=== PATIENT | male | born 1960 | race African-American/Black ===

== ENCOUNTER 2020-11-18 09:31 | Outpatient (REF) | payer MEDICARE, SELFPAY ==
[2020-11-18 10:44] LABS: Estimated Average Glucose 137 mg/dL; Hemoglobin A1c % 6.4 %
[2020-11-18 10:48] LABS: Alanine Aminotransferase 27 U/L (0-40); Blood Urea Nitrogen 18 mg/dL (9-16); Cholesterol 134 mg/dL; Estimated Glomerular Filt Rate > 60; Glucose Fasting 106 mg/dL (60-99); HDL Cholesterol 35 mg/dL; LDL Cholesterol Calculated 82 mg/dl; Triglycerides 89 mg/dL
[2020-11-18 11:22] LABS: Creatinine Urine 107.74 mg/dL; Microalbumin Urine < 5.0 mg/L
[2020-11-18 11:53] LABS: Anion Gap 14 (12-20); Carbon Dioxide 26 mmol/L (22-29); Chloride 104 mmol/L (96-108); Potassium 2.9 mmol/L (3.3-5.1); Sodium 141 mmol/L (135-145)
== END 2020-11-18 09:32 | disposition home or self-care (01) ==
LOC: HO.10HDL 09:31
PROVIDERS: Visit Provider Family Medicine
DX: Z13.89 Encounter for screening for other disorder (principal)
CPT/HCPCS: 36415; 80051; 80061; 82043; 82550; 82565; 82947; 83036; 84460; 84520

== ENCOUNTER 2021-03-28 10:48 | Outpatient (REF) | payer MEDICARE, SELFPAY ==
[2021-03-28 14:15] LABS: Anion Gap 11 (12-20); Carbon Dioxide 29 mmol/L (22-29); Chloride 105 mmol/L (96-108); Potassium 3.2 mmol/L (3.3-5.1); Sodium 142 mmol/L (135-145)
== END 2021-03-28 10:49 | disposition home or self-care (01) ==
LOC: HO.10HDL 10:48
PROVIDERS: Visit Provider Family Medicine
DX: I10 Essential (primary) hypertension (principal); E87.6 Hypokalemia
CPT/HCPCS: 36415; 80051

== ENCOUNTER → 2021-08-18 12:48 | Outpatient (REF) | payer MEDICARE, SELFPAY ==
--- NOTE | 2021-08-18 13:06 | ECG_ITS ---
Test Reason : preop Blood Pressure : / mmHG Vent. Rate : 060 BPM Atrial Rate : 060 BPM P-R Int : 148 ms QRS Dur : 082 ms QT Int : 414 ms P-R-T Axes : 069 003 020 degrees QTc Int : 414 ms Normal sinus rhythm Normal ECG No previous ECGs available Referred By: Pj Koenig Electronically Signed By:NARINDER TAFOYA
[2021-08-18 13:35] LABS: Alanine Aminotransferase 22 U/L (0-40); Anion Gap 9 (12-20); Blood Urea Nitrogen 11 mg/dL (9-16); Carbon Dioxide 25 mmol/L (22-29); Chloride 114 mmol/L (96-108); Estimated Glomerular Filt Rate > 60; Glucose Fasting 101 mg/dL (60-99); Potassium 4.1 mmol/L (3.3-5.1); Sodium 144 mmol/L (135-145)
[2021-08-18 13:36] LABS: Estimated Average Glucose 120 mg/dL; Hemoglobin A1c % 5.8 %
[2021-08-19 08:38] LABS: Cholesterol 115 mg/dL; HDL Cholesterol 35 mg/dL; LDL Cholesterol Calculated 64 mg/dl; Triglycerides 80 mg/dL
== END ==
LOC: HO.CARD 12:48
PROVIDERS: PCP Family Medicine; Visit Provider Family Medicine
DX: Z01.818 Encounter for other preprocedural examination (principal); I10 Essential (primary) hypertension; E11.9 Type 2 diabetes mellitus without complications; E78.00 Pure hypercholesterolemia, unspecified; Z79.899 Other long term (current) drug therapy
CPT/HCPCS: 36415; 80051; 80061; 82550; 82565; 82947; 83036; 84460; 84520; 93005

== ENCOUNTER 2021-12-05 10:18 | Outpatient (REF) | payer MEDICARE, SELFPAY ==
[2021-12-05 11:36] LABS: Uric Acid 6.4 mg/dL (3.4-7.0)
[2021-12-05 11:51] LABS: Erythrocyte Sedimentation Rate 20 MM/HR (0-15)
== END 2021-12-05 10:19 | disposition home or self-care (01) ==
LOC: HO.LAB 10:18
PROVIDERS: PCP Family Medicine; Visit Provider Family Medicine
DX: M10.9 Gout, unspecified (principal)
CPT/HCPCS: 36415; 84550; 85652

== ENCOUNTER 2022-05-27 14:22 | Outpatient (REF) | payer MEDICARE, SELFPAY ==
[2022-05-27 15:13] LABS: Estimated Average Glucose 123 mg/dL; Hemoglobin A1c % 5.9 %
[2022-05-27 15:57] LABS: Alanine Aminotransferase 17 U/L (0-40); Anion Gap 13 (12-20); Aspartate Amino Transferase 14 U/L (5-37); Blood Urea Nitrogen 11 mg/dL (9-16); Carbon Dioxide 24 mmol/L (22-29); Chloride 111 mmol/L (96-108); Cholesterol 134 mg/dL; Estimated Glomerular Filt Rate > 60; Glucose Fasting 81 mg/dL (60-99); HDL Cholesterol 32 mg/dL; LDL Cholesterol Calculated 81 mg/dl; Potassium 4.1 mmol/L (3.3-5.1); Prostate Specific Antigen Scr 0.76 ng/mL (<0.05-4.0); Sodium 144 mmol/L (135-145); Triglycerides 108 mg/dL
== END 2022-05-27 14:23 | disposition home or self-care (01) ==
LOC: HO.LAB 14:22
PROVIDERS: PCP Family Medicine; Visit Provider Family Medicine
DX: Z12.5 Encounter for screening for malignant neoplasm of prostate (principal); I10 Essential (primary) hypertension; E78.00 Pure hypercholesterolemia, unspecified; E11.9 Type 2 diabetes mellitus without complications; R35.1 Nocturia; Z79.899 Other long term (current) drug therapy
CPT/HCPCS: 36415; 80051; 80061; 82550; 82565; 82947; 83036; 84153; 84450; 84460; 84520

== ENCOUNTER 2023-05-27 12:20 | Outpatient (REF) | payer MEDICARE, SELFPAY ==
[2023-05-27 13:44] LABS: Estimated Average Glucose 117 mg/dL; Hemoglobin A1c % 5.7 % (<6.0)
[2023-05-27 14:01] LABS: Alanine Aminotransferase 28 U/L (0-40); Anion Gap 9 (12-20); Aspartate Amino Transferase 16 U/L (5-37); Blood Urea Nitrogen 11 mg/dL (9-16); Carbon Dioxide 25 mmol/L (22-29); Chloride 111 mmol/L (96-108); Estimated Glomerular Filt Rate > 60; Glucose Fasting 80 mg/dL (60-99); Potassium 3.9 mmol/L (3.3-5.1); Sodium 141 mmol/L (135-145)
[2023-05-27 14:07] LABS: Creatinine Urine 94.08 mg/dL; Microalbum/Creatinine Ratio Ur 7.4 ug/mg cr (<30)
== END 2023-05-27 12:21 | disposition home or self-care (01) ==
LOC: HO.10HDL 12:20
PROVIDERS: Visit Provider Family Medicine
DX: I10 Essential (primary) hypertension (principal); E78.00 Pure hypercholesterolemia, unspecified; E11.9 Type 2 diabetes mellitus without complications; Z79.899 Other long term (current) drug therapy
CPT/HCPCS: 36415; 80051; 82043; 82550; 82565; 82570; 82947; 83036; 84450; 84460; 84520

== ENCOUNTER 2023-08-05 10:00 | Outpatient (RCR) | payer MEDICARE, SELFPAY ==
--- NOTE | 2023-10-15 08:43 | MHC.PT.DC ---
[facility] [place] Office [place] Office [place] Office [address] Maricel Tellez 140 [facility] [phone] F: [phone] F: [phone] F: [phone] F: [phone] Physical Therapy Discharge Report Diagnosis: Lumbar intervertebral disc degeneration Date of Surgery: Date of Evaluation: 07/05/23 Date of Discharge: 10/15/23 Treatments to Date: 9 Cancellations to Date: No Shows to Date: Discharge Status: Independent with HEP Patient Elected to Stop Discharge Summary: Pt persisted with LBP though found his program helpful when he was consistent; he did not attend his last apt for discharge assessment. Electronically signed by: Pavan Avendano PT. Please sign and return to therapist. Thank you for your referral.
== END 2023-10-15 08:43 | disposition home or self-care (01) ==
LOC: HO.PT 10:00
PROVIDERS: PCP Family Medicine; Visit Provider Family Medicine
DX: M51.36 Other intervertebral disc degeneration, lumbar region (principal)
CPT/HCPCS: 97014; 97110; 97161

== ENCOUNTER 2023-11-03 11:24 | Outpatient (REF) | payer MEDICARE, SELFPAY ==
--- NOTE | ~2023-11-03 | XR_ITS ---
EXAMINATION: XR KNEE, LEFT CLINICAL INFORMATION: No injury, ongoing pain COMPARISON: September 15, 2019 TECHNIQUE: Four views of the left knee. FINDINGS: Redemonstration of abundant calcification along the inferior aspect of the patella, possibly representing dystrophic calcification related to chronic degenerative process or prior trauma. Small joint effusion. Small posterior patellar osteophytes. Mild narrowing of the lateral compartment. XR/XR knee LT 4V IMPRESSION: 1. Redemonstration of abundant calcification along the inferior aspect of the patella, possibly representing dystrophic calcification related to chronic degenerative process or prior trauma. 2. Small joint effusion.
--- NOTE | ~2023-11-03 | XR_ITS ---
EXAMINATION: XR LUMBOSACRAL SPINE CLINICAL INFORMATION: Low back pain, no injury, ongoing pain. COMPARISON: None available. TECHNIQUE: Three views of the lumbosacral spine. FINDINGS: There is a transitional vertebral body referred to as L5 for the purposes of this dictation with bilateral enlarged L5 transverse processes articulating with the sacrum.Mild levoscoliosis of the lumbar spine. Straightening of the normal lumbar lordosis. Facet arthritis in the lower lumbar spine. Mild multilevel lumbar spondylosis with loss of disc space height at L4-L5 and L5-S1. There is a transitional vertebral body referred to as L5 for the purposes of this dictation with bilateral enlarged L5 transverse processes articulating with the sacrum. 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 XR/XR lumbar spine 2-3V IMPRESSION: 1. Mild multilevel lumbar spondylosis with loss of disc space height at L4-L5 and L5-S1. 2. Facet arthritis in the lower lumbar spine. 3. There is a transitional vertebral body referred to as L5 for the purposes of this dictation with bilateral enlarged L5 transverse processes articulating with the sacrum.
[2023-11-03 13:46] LABS: Alanine Aminotransferase 24 U/L (0-40); Anion Gap 13 (12-20); Aspartate Amino Transferase 16 U/L (5-37); Blood Urea Nitrogen 11 mg/dL (9-16); Carbon Dioxide 24 mmol/L (22-29); Chloride 114 mmol/L (96-108); Cholesterol 133 mg/dL (<200); Estimated Glomerular Filt Rate > 60; Glucose Fasting 94 mg/dL (60-99); HDL Cholesterol 31 mg/dL (>40); LDL Cholesterol Calculated 83 mg/dL (<100); Potassium 4.3 mmol/L (3.3-5.1); Sodium 147 mmol/L (135-145); Triglycerides 97 mg/dL (<150)
[2023-11-03 13:50] LABS: Estimated Average Glucose 123 mg/dL; Hemoglobin A1c % 5.9 % (<6.0)
[2023-11-03 14:17] LABS: Creatinine Urine 132.97 mg/dL; Microalbumin Urine < 5.0 mg/L
== END 2023-11-03 11:25 | disposition home or self-care (01) ==
LOC: HO.10HDL 11:24
PROVIDERS: PCP Family Medicine; Visit Provider Family Medicine
DX: M54.50 Low back pain, unspecified (principal); M25.562 Pain in left knee; I10 Essential (primary) hypertension; E11.9 Type 2 diabetes mellitus without complications; E78.00 Pure hypercholesterolemia, unspecified; Z79.899 Other long term (current) drug therapy
CPT/HCPCS: 36415; 72100; 73564; 80051; 80061; 82043; 82550; 82565; 82570; 82947; 83036; 84450; 84460; 84520

== ENCOUNTER 2024-03-29 11:07 | Outpatient (REF) | payer MEDICARE, SELFPAY ==
[2024-03-29 13:06] LABS: MANUAL DIFF FLAG NO
[2024-03-29 13:09] LABS: Basophils Absolute Auto 0.1 X10*3/uL (0.0-0.2); Basophils Percent Auto 1.3 % (0-2); Eosinophils Absolute Auto 0.5 X10*3/uL (0.0-0.4); Eosinophils Percent Auto 5.3 % (0-4); Hemoglobin 13.1 g/dl (14.0-18.0); Imm Gran Abs Auto 0.01 X10*3/uL (0.00-0.03); Imm Gran Pct Auto 0.1 % (0.0-0.4); Lymphocytes Absolute Auto 2.7 X10*3/uL (1.2-4.9); Lymphocytes Percent Auto 29.5 % (20-40); Mean Corpuscular HGB Conc 32.8 g/dl (31.0-36.0); Mean Corpuscular Hemoglobin 27.1 pg (27.0-33.0); Mean Corpuscular Volume 82.8 fL (80.0-98.0); Mean Platelet Volume 10.4 fL (9.4-12.4); Monocytes Absolute Auto 0.8 X10*3/uL (0.1-1.2); Monocytes Percent Auto 8.3 % (2-11); Neutrophils Absolute Auto 5.1 x10*3/uL (2.0-8.3); Neutrophils Percent Auto 55.5 % (45-73); Platelet Count 230 X10*3/uL (160-400); Red Blood Count 4.83 X10*6/uL (4.60-5.80); Red Cell Distribution Width 14.4 % (11.0-16.0); White Blood Count 9.1 X10*3/uL (4.8-10.8)
[2024-03-29 13:21] LABS: Alanine Aminotransferase 22 U/L (0-40); Anion Gap 12 (12-20); Aspartate Amino Transferase 13 U/L (5-37); Blood Urea Nitrogen 10 mg/dL (9-16); Carbon Dioxide 24 mmol/L (22-29); Chloride 113 mmol/L (96-108); Estimated Glomerular Filt Rate > 60; Potassium 4.1 mmol/L (3.3-5.1); Sodium 145 mmol/L (135-145)
[2024-03-29 13:27] LABS: Estimated Average Glucose 126 mg/dL; Hemoglobin A1C 140.2882 umol/L; Total Hemoglobin (HGBA1C) 3326.1161 umol/L
[2024-03-29 13:35] LABS: Creatinine Urine 107.58 mg/dL; Microalbumin Urine < 5.0 mg/L
[2024-03-30 10:10] LABS: Glucose Fasting 86 mg/dL (60-99)
== END 2024-03-29 11:08 | disposition home or self-care (01) ==
LOC: HO.10HDL 11:07
PROVIDERS: Visit Provider Family Medicine
DX: I10 Essential (primary) hypertension (principal); R53.83 Other fatigue; E78.00 Pure hypercholesterolemia, unspecified; E11.9 Type 2 diabetes mellitus without complications; Z79.899 Other long term (current) drug therapy
CPT/HCPCS: 36415; 80051; 82550; 82565; 82570; 82947; 83036; 84450; 84460; 84520; 85025

== ENCOUNTER 2025-04-03 11:27 | Outpatient (AMB) | payer MEDICARE, SELFPAY ==
--- NOTE | 2025-04-03 10:53 | MHC.PC.OV ---
Vital Signs 04/03/25 11:36 Height 5 ft 9 in Weight 107.501 kg BMI 35.0 BP 122/82 Blood Pressure Location Rt brachial Position Sitting Respiration 16 Pulse 53 Pulse Source Pulse Oximeter Temp 96.9 F Temp Source Temporal Artery Scan Pulse Oximetry (%) 96 Oxygen Delivery Method Room Air Intake Visit Reasons: 4 MO F/UP - ANALI PT - see comments Senior Copywriter Required: No Accompanied by: Self / Same As Patient Allergies penicillin Allergy (Unknown, Uncoded 09/15/19 00:00) Tobacco use date assessed: 04/03/25 Dental Screening Dental Screen Date: 04/03/25 Did you have a dental visit in the last 12 months?: Yes Did you have a dental problem in the last 6 months where you did not have access to dental care?: No Was dental information given to patient?: Patient has dentist HPI HPI Comments History of Present Illness Details 64-year-old male with history of hypertension, type 2 diabetes with erectile dysfunction, history of genital herpes, GERD, hyperlipidemia, insomnia, depression, obstructive sleep apnea, venous insufficiency presenting to the office today for management of chronic conditions and to establish care Type 2 diabetes with erectile dysfunction-last A1c 6.0%. RN at home took A1c and reports this was 8.1%. Managed with metformin 500 mg twice daily but has only been taking intermittently. Compliant with diabetic diet. Due for A1c and microalbumin urine screen. Sildenafil PRN Depression/insomnia-escitalopram 10 mg nightly and topiramate 200 mg nightly Hypertension-lisinopril 5 mg daily. Blood pressure in the office today 122/82 Genital herpes-suppressed with Valtrex 500 mg daily Hyperlipidemia-atorvastatin 40 mg daily. Last LDL 83 LEONARD- not using cpap Obesity- BMI 35.0. Stopped drinking soda and increased water intake. Walking for exercise. Concerns: R quadriceps injury (rupture) in 2013. Works for [employer]. Has had several surgeries and has done physical therapy. Is still unstable at times. Not overly painful per patient, but describes a constant mild throbbing. Follows with Jenn, case still open. No longer working Chronic low back pain- but reports he deals with it. Interested in PT. No radiation, paresthesias, bowel/bladder dysfunction Health maintenance: Last colonoscopy ROS: see hpi EXAM: Constitutional - Awake and Alert, No apparent distress Eyes - PERRL Cardiovascular - S1S2, RRR, No edema Respiratory - Normal lung expansion, Normal respiratory effort, No respiratory distress, CTA bilaterally Extremities - no calf tenderness bilaterally, no swelling MSK- ttp over the left paraspinal muscles. No midline ttp Skin - Warm/Dry Neurological - Alert & oriented x3 Psychological - Appropriate affect [facility] Medical History (Updated 04/03/25 @ 12:04 by TOMMY Og) LEONARD (obstructive sleep apnea) Genital herpes Venous insufficiency HLD (hyperlipidemia) HTN (hypertension) Erectile dysfunction due to type 2 diabetes mellitus Chronic low back pain Social History Housing: House Patient Tobacco Use Status: Never used Tobacco e-Cigarette/Vaping Use: Never Used service: No Current occupational status: unemployed Questionnaire AUDIT C Alcohol Use Questionnaire (AUDIT-C) 1. How often do you have a drink containing alcohol?: Never 3. How often do you have six or more drinks on one occasion?: Never Total Score: 0 Physical exam (Primary Care) Vital Signs: Last Vital Signs Temp 96.9 F 04/03/25 11:36 Pulse 53 04/03/25 11:36 Resp 16 04/03/25 11:36 BP 122/82 04/03/25 11:36 Pulse Ox 96 04/03/25 11:36 Oxygen Delivery Method Room Air 04/03/25 11:36 BMI result Body Mass Index 35.0 Tobacco/Smoking Status: Tobacco use Status Tobacco use date assessed 04/03/25 04/03/25 10:55 Patient Tobacco Use Status Never used Tobacco 04/03/25 11:39 e-Cigarette/Vaping Use Never Used 04/03/25 11:39 Coding Level of Care Code New Pt Level 4 (68863) Complex EM visit Add On G2211 Diagnoses Chronic low back pain M54.50; G89.29 Erectile dysfunction due to type 2 diabetes mellitus E11.69; N52.1 HTN (hypertension) I10 HLD (hyperlipidemia) E78.5 LEONARD (obstructive sleep apnea) G47.33 Assessment & Plan Assessment & Plan (1) Chronic low back pain: Code(s): M54.50 - Low back pain, unspecified; G89.29 - Other chronic pain Category: Medical Plan: Recommend ibuprofen/Tylenol, topical analgesics, ice. Referred to physical therapy. Gentle exercises at home as tolerated (2) Erectile dysfunction due to type 2 diabetes mellitus: Comment: Noncompliant with metformin. Has improved diabetic diet Code(s): E11.69 - Type 2 diabetes mellitus with other specified complication; N52.1 - Erectile dysfunction due to diseases classified elsewhere Category: Medical Plan: Hemoglobin A1c ordered. Counseled on compliance with medications. Continue metformin 500 mg twice daily. Continue with improvements to diabetic diet. Microalbumin urine screen ordered. Annual eye exams. Continue sildenafil as needed (3) HTN (hypertension): Code(s): I10 - Essential (primary) hypertension Category: Medical Plan: Controlled. Continue lisinopril (4) HLD (hyperlipidemia): Code(s): E78.5 - Hyperlipidemia, unspecified Category: Medical Plan: Previously controlled. Lipid panel ordered. Continue atorvastatin (5) LEONARD (obstructive sleep apnea): Comment: Noncompliant with CPAP. Counseled Code(s): G47.33 - Obstructive sleep apnea (adult) (pediatric) Category: Medical Plan: Counseled on CPAP compliance Plan Follow-up in the office in 4 months. Labs to be completed today. Referred for colonoscopy Orders: Orders Basic Metabolic Panel Today A60.00 - Herpesviral infection of urogenital system, unspecified, E11.69 - Type 2 diabetes mellitus with other specified complication, E78.5 - Hyperlipidemia, unspecified, I10 - Essential (primary) hypertension, N52.1 - Erectile dysfunction due to diseases classified elsewhere Microalbumin, Random (w Creat) Today A60.00 - Herpesviral infection of urogenital system, unspecified, E11.69 - Type 2 diabetes mellitus with other specified complication, E78.5 - Hyperlipidemia, unspecified, I10 - Essential (primary) hypertension, N52.1 - Erectile dysfunction due to diseases classified elsewhere Prostate Specific Antigen Today A60.00 - Herpesviral infection of urogenital system, unspecified, E11.69 - Type 2 diabetes mellitus with other specified complication, E78.5 - Hyperlipidemia, unspecified, I10 - Essential (primary) hypertension, N52.1 - Erectile dysfunction due to diseases classified elsewhere PT Evaluation and Treatment Today G89.29 - Other chronic pain, M54.50 - Low back pain, unspecified Complete Blood Count Auto Diff Today A60.00 - Herpesviral infection of urogenital system, unspecified, E11.69 - Type 2 diabetes mellitus with other specified complication, E78.5 - Hyperlipidemia, unspecified, I10 - Essential (primary) hypertension, N52.1 - Erectile dysfunction due to diseases classified elsewhere Hemoglobin A1c Today A60.00 - Herpesviral infection of urogenital system, unspecified, E11.69 - Type 2 diabetes mellitus with other specified complication, E78.5 - Hyperlipidemia, unspecified, I10 - Essential (primary) hypertension, N52.1 - Erectile dysfunction due to diseases classified elsewhere Lipid Panel Today A60.00 - Herpesviral infection of urogenital system, unspecified, E11.69 - Type 2 diabetes mellitus with other specified complication, E78.5 - Hyperlipidemia, unspecified, I10 - Essential (primary) hypertension, N52.1 - Erectile dysfunction due to diseases classified elsewhere Liver Panel Today A60.00 - Herpesviral infection of urogenital system, unspecified, E11.69 - Type 2 diabetes mellitus with other specified complication, E78.5 - Hyperlipidemia, unspecified, I10 - Essential (primary) hypertension, N52.1 - Erectile dysfunction due to diseases classified elsewhere Referrals Gastroenterology Referral Z12.11 - Encounter for screening for malignant neoplasm of colon
[2025-04-03 11:36] VITALS: BP 122/82; PULSE 53; RESP 16; TEMP 36.1; O2SAT 96; BMI 35.0
--- OUTSIDE RECORDS SUMMARY | 2025-04-03 14:28 | XMS_ITS | Clinical Summary ---
Author Organization [facility] Address [address] [place] [address] Care Team Providers Care Body Trimmer Upholsterer Name Role Phone Pj Koenig MD Primary Care Provider [phone] Allergies Active Allergy Reactions Criticality Noted Date Comments Penicillins Rash/Dermatitis Low 09/29/2023 Medications No known medications Active Problems Problem Noted Date Diagnosed Date Back pain 09/29/2023 Social History Tobacco Use Types Packs/Day Years Used Date Smoking Tobacco: Never Assessed Tobacco Cessation:Counseling Given: Not Answered Sex and Gender Information Value Date Recorded Sex Assigned at Male 09/20/2023 10:43 AM EDT Legal Sex Male 11:58 AM EDT Gender Identity Male 09/20/2023 10:43 AM EDT Sexual Orientation Choose not to disclose 2023 10:43 AM EDT Last Filed Vital Signs Vital Sign Reading Time Taken Comments Blood Pressure 120/80 02/27/2014 11:20 AM EDT Pulse 81 02/27/2014 11:55 AM EDT Temperature - - Respiratory Rate 12 02/27/2014 11:55 AM EDT Oxygen Saturation - - Inhaled Oxygen Concentration - - Weight 116 kg (256 lb) 02/27/2014 11:20 AM EDT Height 172.7 cm (5' 8 ) 02/27/2014 11:20 AM EDT Body Mass Index 38.92 02/27/2014 11:20 AM EDT Plan of Treatment Health Maintenance Due Date Last Done Comments Hepatitis C Virus Screening 1961 HIV Screening 1974 DTaP/Tdap/Td Vaccines (1 - Tdap) 1980 Colonoscopy 2006 Pneumococcal Vaccines 50+ (1 of 1 - PCV) 2011 Zoster (Shingles) Vaccine (1 of 2) 2011 RSV Vaccine 60 years and older and Patients (1 - Risk 60-74 years 1-dose series) 2021 Influenza Vaccine 01/26/2025 04/29/2018, 04/26/2017, 03/24/2016 COVID-19 Vaccine (2023-2 5 season) 2025 Hepatitis B Vaccines Aged Out No long er eligible based on patient's age to complete this [place] [address] [facility] [place] [employer] Care Teams Body Trimmer Upholsterer Relationship Specialty Start Date End Date Pj Koenig MD [address] [place] [address] [place] [id number] PCP - General Internal Medicine 11/19/23
--- OUTSIDE RECORDS SUMMARY | 2025-04-03 14:28 | XMS_ITS | Encounter Summary ---
Author Organization [facility] Address [address] [place] [address] Care Team Providers Care Loss Prevention/Safety District Manager Name Role Phone System, Provider Not In Primary Care Provider Un available Pj Koenig MD Primary Care Provider [phone] Encounter Details Date Type Department Care Team (Late st Contact Info) Description 04/03/[address] [facility] COLORECTAL SCAN Colorectal, Scan Social History Tobacco Use Types Packs/Day Years Used Date Smoking Tobacco: Never Assessed Sex and Gender Information Value Date Recorded Sex Assigned at Male 09/20/2023 10:43 AM EDT Legal Sex Male 11:58 AM EDT Gender Identity Male 09/20/2023 10:43 AM EDT Sexual Orientation Choose not to disclose 2023 10:43 AM EDT documented as of this encounter Plan of Treatment Not on file documented as of this encounter Visit Diagnoses Not on filedocumented in this encounter Care Teams Loss Prevention/Safety District Manager Relationship Specialty Start Date End Date System, Provider Not In PCP - General 09/20/23 11/18/23 Pj Koenig MD [address] [place] [address] [place] [id number] PCP - General Internal Medicine 11/19/23 documented as of this encounter
--- OUTSIDE RECORDS SUMMARY | 2025-04-03 14:28 | XMS_ITS ---
Author Name [facility] Organization Unknown History of Medication Use Medication Directions Dispensed Refills Start Date End Date Stat cyclobenzaprine (FLEXERIL) 5 mg tablet TAKE 1 TABLET BY MOUTH EVERYDAY AT BEDTIME 12/31/2023 active escitalopram (LEXAPRO) 10 mg tablet TAKE 1 TABLET BY MOUTH EVERYDAY AT BEDTIME 04/07/2023 active predniSONE (DELTASONE) 10 mg tablet Take 2 pills x 4 days, Take 1 pill for 4 days and 1/2 pill x 4 days 08/25/2022 active metoprolol succinate XL (Toprol XL) 50 mg 24 hr tablet TAKE 1 TABLET BY MOUTH EVERY DAY AT BEDTIME DIRECTED 10/20/2021 active atorvastatin (LIPITOR) 40 mg tablet TAKE 1 TABLET BY MOUTH EVERY DAY AT BEDTIME DIRECTED 10/02/2021 active lisinopriL (PRINIVIL) 5 mg tablet TAKE 1 TABLET BY MOUTH EVERY DAY IN THE MORNING DIRECTED 09/17/2021 active topiramate (TOPAMAX) 100 mg tablet daily. 08/04/2020 active OneTouch Verio test strips strip for testing 07/19/2020 active sertraline (ZOLOFT) 100 mg tablet Take 100 mg by mouth nightly. 05/06/2020 active potassium chloride (K-TAB) 20 mEq CR tablet daily. 08/23/2019 active lancets 30 gauge misc 1 each daily. active metFORMIN XR (GLUCOPHATE-XR) 500 mg 24 hr tablet 2 (two) times a day. active No known medications No known medications active sildenafiL, pulm.hypertension, (REVATIO) 20 mg tablet sildenafil (pulmonary hypertension) 20 mg tablet TAKE 2 TABLET (20 MG) BY ORAL ROUTE 30 minutes prior to intercourse active valACYclovir (VALTREX) 500 mg tablet as needed. active Allergies Allergen Reaction Severity Comment Documented Date Source Statu s PENICILLIN 02/08/2024 [facility] active PENICILLINS RASH/DERMATITIS 09/29/2023 [facility] a ctive HYDROCODONE-ACETAMINOP HEN GI INTOLERANCE 10/17/2013 [facility] active OXYCODONE-ACETAMINOPHE N [facility] Problems Problem Status Onset Date Problem Type Date of Resolution Source Psychosexual dysfunction associated with inhibited libido active 2021-10-21 ProblemAct [facility] Major depressive disorder active 2021-10-21 ProblemAct [facility] Obstructive sleep apnea syndrome active 2017-01-19 ProblemAct [facility] Type 2 diabetes mellitus without complication active 2021-10-21 ProblemAct [facility] Essential hypertension active 2021-10-21 ProblemAct [facility] Distal muscle weakness active 2015-04-04 ProblemAct [facility] Hyperlipidemia active 2021-10-21 ProblemAct [facility] Vernal conjunctivitis active 2019-01-06 ProblemAct [facility] Seborrheic dermatitis active 2021-10-21 ProblemAct [facility] Obesity with body mass index 30 or greater active 2021-10-21 ProblemAct [facility] Drug-induced hypokalemia active 2019-01-08 ProblemAct [facility] Muscle weakness active EncounterDiagnosisAct [facility] Difficulty walking active EncounterDiagnosisAct [facility] Chronic pain of right knee active EncounterDiagnosisAct [facility] Back pain active 2023-09-29 ProblemAct [facility] Immunizations Vaccine Date Source Lot Number Status Influenza, Quadrivalent 04/29/2018 [facility] [id number] ompleted Td 04/29/2018 [facility] [id number] completed Influenza, Quadrivalent 04/26/2017 [facility] [id number] ompleted Influenza, Quadrivalent 03/24/2016 [facility] [id number] c ompleted Pneumococcal Polysaccharide PCV-23 10/25/2015 [facility] [id number] completed Pneumococcal Conjugate PCV-13 10/22/2014 [facility] [id number] completed Influenza (IM) Preservative Free 04/24/2014 [facility] [id number] completed Influenza TIV (IM) 02/08/2012 [facility] [id number] comple alonzo Influenza TIV (IM) 03/06/2009 [facility] comple alonzo Tdap 02/10/2007 [facility] completed Encounters Encounter Type Encounter Reason Primary Diagnosis Location Date Ambulatory Encounter for other orthopedic aftercare Encounter for other orthopedic aftercare [facility] 02/08/2024 [facility] 01/19/2024 Ambulatory [facility] 12/21/2023 Ambulatory [facility] 12/17/2023 Ambulatory [facility] 12/14/2023 Ambulatory [facility] 12/09/2023 Ambulatory [facility] 12/02/2023 Ambulatory [facility] 11/30/2023 Ambulatory Pain in right knee Pain in right knee [facility] 11/19/2023 Ambulatory Pain in right knee Pain in right knee [facility] 11/09/2023 Ambulatory Pain in right knee Pain in right knee [facility] 11/05/2023 Ambulatory Pain in right knee Pain in right knee [facility] 10/28/2023 Ambulatory Pain in right knee Pain in right knee [facility] 10/26/2023 Ambulatory Pain in right knee Pain in right knee [facility] 10/20/2023 Ambulatory Pain in right knee Pain in right knee [facility] 10/15/2023 Ambulatory Pain in right knee Pain in right knee [facility] 09/29/2023 Ambulatory [facility] 05/18/2023 Ambulatory [facility] 11/17/2022 Ambulatory Muscle weakness (generalized) [facility] 08/25/2022 Ambulatory Follow-up [facility] 02/10/2022 Ambulatory Other instabilit y, right knee [facility] 10/30/2021 Ambulatory Other instabilit y, right knee [facility] 09/25/2021 Ambulatory Other instabilit y, right knee [facility] 09/16/2021 Ambulatory Unilateral prima ry osteoarthritis, right knee [facility] 09/01/2021 Ambulatory Other instabilit y, right knee [facility] 07/10/2021 Ambulatory [facility] 04/22/2021 Ambulatory Other instabilit y, right knee [facility] 04/22/2021 Care Team Organization Name Specialty Phone Email Start Date End Da te [facility] MAGDA BRIONES Primary Care 11/19/2023 [facility] System Desk Attendant 09/29/2023 09/13/2024 [facility] PROVIDER SYSTEM Primary Care 09/20/2023 [facility] PCP,No Primary Care 02/10/2022 [facility] NO PCP Primary Care 07/10/2021 [facility]
--- OUTSIDE RECORDS SUMMARY | 2025-04-03 14:28 | XMS_ITS | Encounter Summary ---
Author Organization [facility] Address [address] [place] [id number] Care Team Providers Care Licensed Vocational Nurse Name Role Phone Pcp, No MD Primary Care Provider Milton e Pcp, No MD Primary Care Provider Unavailprema e Pj Koenig Unavailable Encounter Details Date Type Department Care Team (Late st Contact Info) Description 07/02/2021 Orders Only [place] [phone] Corey Phillips MD PhD [address] [facility] [place] [address] Social History Tobacco Use Types Packs/Day Years Used Date Smoking Tobacco: Never Smokeless Tobacco: Never Alcohol Use Standard Drinks/Week Comments Never 0 (1 standard drink = 0.6 oz pur e alcohol) AUDIT-C Answer Date Recorded Q1: How often do you have a drink containing alc ohol? Never 08/25/2019 Average Number of Drinks Not on file 020 Frequency of Binge Drinking Not on file 07/30 Sex and Gender Information Value Date Recorded Sex Assigned at Not on file Legal Sex Male 11:51 AM EST Gender Identity Not on file Sexual Orientation Not on file documented as of this encounter Plan of Treatment Not on file documented as of this encounter Visit Diagnoses Not on filedocumented in this encounter Care Teams Licensed Vocational Nurse Relationship Specialty Start Date End Date Irlanda Shah MD [address] [place] [id number] PCP - General Internal Medicine 08/16/19 08/14/21 Irlanda Shah MD [address] [place] [id number] PCP - General Internal Medicine 08/15/21 Pj Koenig [address] [place] [phone] PCP - Insurance Payer PCP 04/18/23 documented as of this encounter
--- OUTSIDE RECORDS SUMMARY | 2025-04-03 14:28 | XMS_ITS | Clinical Summary ---
Author Organization [facility] Address [address] [place] [id number] Care Team Providers Care Head Operator Name Role Phone Pcp, No MD Primary Care Provider jP Pearson Unavailable Allergies Active Allergy Reactions Criticality Noted Date Comments Hydrocodone-Acetaminophen GI intolerance 2013 Oxycodone-Acetaminophen 02/08/2024 Penicillin 02/08/2024 Penicillins Rash Low 08/25/2019 Medications metFORMIN XR (GLUCOPHATE-XR) 500 mg 24 hr tablet 2 (two) times a day. Active lancets 30 gauge misc 1 each daily. Activ e potassium chloride (K-TAB) 20 mEq CR tablet daily. 0 Active sildenafiL, pulm.hypertensi on, (REVATIO) 20 mg tablet sildenafil (pulmonary hypertension) 20 mg tablet TAKE 2 TABLET (20 MG) BY ORAL ROUTE 30 minutes prior to intercourse Active valACYclovir (VALTREX) 500 mg tablet as needed. Active OneTouch Verio Flex meter misc for testing 1 Active sertraline (ZOLOFT) 100 mg tablet Take 100 mg by mouth nightly. 0 Active topiramate (TOPAMAX) 100 mg tablet daily. 1 Active OneTouch Verio test strips strip for testing 1 Active lisinopriL (PRINIVIL) 5 mg tablet TAKE 1 TABLET BY MOUTH EVERY DAY IN THE MORNING DIRECTED 2 Active atorvastatin (LIPITOR) 40 mg tablet TAKE 1 TABLET BY MOUTH EVERY DAY AT BEDTIME DIRECTED 2 Active metoprolol succinate XL (Toprol XL) 50 mg 24 hr tablet TAKE 1 TABLET BY MOUTH EVERY DAY AT BEDTIME DIRECTED 2 Active predniSONE (DELTASONE) 10 mg tablet Take 2 pills x 4 days, Take 1 pill for 4 days and 1/2 pill x 4 days 20 tablet 3 Active Additional Information Patient not taking.Reported on 11/17/2022 escitalopram (LEXAPRO) 10 mg tablet TAKE 1 TABLET BY MOUTH EVERYDAY AT BEDTIME 3 Active cyclobenzaprine (FLEXERIL) 5 mg tablet TAKE 1 TABLET BY MOUTH EVERYDAY AT BEDTIME 4 Active Active Problems Problem Noted Date Diagnosed Date Essential hypertension 10/21/2021 Hyperlipidemia 10/21/2021 Major depressive disorder 10/21/2021 Obesity with body mass index 30 or greater 10/21 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 10/21/2021 Seborrheic dermatitis 10/21/2021 Type 2 diabetes mellitus without complication Drug-induced hypokalemia 01/08/2019 Vernal conjunctivitis 01/06/2019 Obstructive sleep apnea syndrome 01/19/2017 Distal muscle weakness 04/04/2015 Immunizations Immunization Administration Dates Next Due Influenza (IM) Preservative Free 04/24/2014 Influenza TIV (IM) 02/08/2012,03/06/2009 Influenza, Quadrivalent 04/29/2018,04/26/2017, Pneumococcal Conjugate PCV-13 10/22/2014 Pneumococcal Polysaccharide PCV-23 10/25/2015 Td 04/29/2018 Tdap 02/10/2007 Social History Tobacco Use Types Packs/Day Years Used Date Smoking Tobacco: Never Smokeless Tobacco: Never Tobacco Cessation:Counseling Given: Not Answered Alcohol Use Standard Drinks/Week Comments Never 0 [...] on file Sexual Orientation Not on file Last Filed Vital Signs Vital Sign Reading Time Taken Comments Blood Pressure 132/76 09/03/2021 12:01 PM EST Pulse 85 09/03/2021 12:01 PM EST Temperature 36.1 C (97 F) 10/30/2021 10:41 AM EDT Respiratory Rate 17 09/03/2021 12:01 PM EST Oxygen Saturation 97% 09/03/2021 12:01 PM EST Inhaled Oxygen Concentration - - Weight 105 kg (232 lb 6.4 oz) 02/08/2024 11:19 A M EDT Height 175.3 cm (5' 9 ) 02/08/2024 11:19 AM EDT Body Mass Index 34.32 02/08/2024 11:19 AM EDT Plan of Treatment Health Maintenance Due Date Last Done Comments CT Colonography 1961 Colonoscopy 1961 Colorectal Cancer Screening 1961 Diabetes: Hemoglobin A1C 1961 Diabetes: Kidney Health Evaluation 1961 FIT-DNA (Cologuard) 1961 FIT 1961 FOBT 1961 Flex Sigmoidoscopy - 5y 1961 HIV Screening 1961 Diabetes: Retinopathy Screening 1979 Hepatitis C Screening 1979 Zoster Vaccines (1 of 2) 2011 Pneumococcal Vaccine, 50+ Years (3 of 3 - PCV20 or PCV21) 10/24/2020 10/25/2015, 10/22/2014 COVID-19 Vaccine (1 - season) 2025 Influenza Vaccine (#1) 2025 8, 04/26/2017, 03/24/2016, Additional history exists DTaP,Tdap,and Td Vaccines (3 - Td or Tdap) 04/29/2028 04/29/2018, 02/10/2007 HPV Vaccines Aged Out No longer eligi ble based on patient's age to complete this topic Hepatitis A Vaccines Aged Out No long er eligible based on patient's age to complete this topic MMR Vaccines Aged Out No longer eligi ble based on patient's age to complete this topic Meningococcal Vaccine Aged Out No kaveh kelly eligible based on patient's age to complete this topic Medical Devices Implanted Type Area Motion Picture Printer Device Identifier Shelf Expiration Date Model / Serial / Lot Simplex Hv With Gentamicin Antibiotic Bone Cement - [id number] Implanted:Qty: 1 on 09/03/2021 by Corey Phillips MD PhD at [facility] [employer] 06/27/2022 [id number] HB Size 2, Ibalance Pfj Patello Femoral, Cemented, Right - [id number] Implanted:Qty: 1 on 09/03/2021 by Corey Phillips MD PhD at [facility] [employer]nee [employer]plants, Repairs, Reconstruction [employer] 04/27/2025 AR-502-2 R / / [id number] 37mm X 10mm Ibalance Patella Implant Dome, Vit E - [id number] Implanted:Qty: 1 on 09/03/2021 by Corey Phillips MD PhD at [facility] Knee Implants, Repairs, [employer] 05/27/2025 AR-524-[id number] / / [id number] Insurance [employer] MANAGED MEDICARE [facility] Advance Directives For more information, please contact: [phone] Documents on File Type Date Recorded Patient Sports Medicine Physician Expl anation Advance Directives 09/05/2021 10:39 AM Care Teams Head Operator Relationship Specialty Start Date End Date Irlanda Shah MD [address] [place] [address] PCP - General Internal Medicine 08/15/21 Pj Koenig [address] [place] [phone] PCP - Insurance Payer PCP 04/18/23
--- OUTSIDE RECORDS SUMMARY | 2025-04-03 14:28 | XMS_ITS | Encounter Summary ---
Author Organization [facility] Address [address] [place] [address] Care Team Providers Care Fish Agent Name Role Phone PcpIrlanda MD Primary Care Provider Pj Pearson Unavailable Encounter Details Date Type Department Care Team (Late st Contact Info) Description 01/11/2024 Orders Only [facility] Department of Orthopedic Surgery [address] [place], [place] [id number] Corey Phillips MD PhD [facility] [place] [address] Social History Tobacco Use Types Packs/Day Years [...] on filedocumented in this encounter Care Teams Fish Agent Relationship Specialty Start Date End Date Irlanda Shah MD [address] [place] [address] PCP - General Internal Medicine 08/15/21 Pj Koenig [address] [place] [phone] PCP - Insurance Payer PCP 04/18/23 documented as of this encounter
== END 2025-04-03 12:02 | disposition home or self-care (01) ==
LOC: HO.HMCHD 11:27
PROVIDERS: PCP Family Medicine; Visit Provider Physician Assistant
DX: M54.50 Low back pain, unspecified (principal); G89.29 Other chronic pain; E11.69 Type 2 diabetes mellitus with other specified complication; N52.1 Erectile dysfunction due to diseases classified elsewhere; I10 Essential (primary) hypertension; E78.5 Hyperlipidemia, unspecified; G47.33 Obstructive sleep apnea (adult) (pediatric)

== ENCOUNTER → 2025-04-03 11:27 | Outpatient (BNVA) | payer MEDICARE, SELFPAY | PROVIDERS: PCP Family Medicine; Visit Provider Physician Assistant | DX: M54.50 Low back pain, unspecified (principal); G89.29 Other chronic pain; E11.69 Type 2 diabetes mellitus with other specified complication; N52.1 Erectile dysfunction due to diseases classified elsewhere; I10 Essential (primary) hypertension; E78.5 Hyperlipidemia, unspecified; G47.33 Obstructive sleep apnea (adult) (pediatric); F32.A Depression, unspecified; G47.00 Insomnia, unspecified; A60.00 Herpesviral infection of urogenital system, unspecified; E66.9 Obesity, unspecified; Z68.35 Body mass index [BMI] 35.0-35.9, adult; Z79.899 Other long term (current) drug therapy; Z91.148 Patient's other noncompliance with medication regimen for other reason | CPT/HCPCS: 99202 ==

== ENCOUNTER 2025-04-03 12:06 | Outpatient (REF) | payer MEDICARE, SELFPAY ==
[2025-04-03 13:10] LABS: MANUAL DIFF FLAG NO
[2025-04-03 13:12] LABS: Hematocrit 39.5 % (42.0-52.0); Hemoglobin 13.1 g/dl (14.0-18.0); Imm Gran Abs Auto 0.02 X10*3/uL (0.00-0.03); Imm Gran Pct Auto 0.2 % (0.0-0.4); Lymphocytes Absolute Auto 2.6 X10*3/uL (1.2-4.9); Mean Corpuscular HGB Conc 33.2 g/dl (31.0-36.0); Mean Corpuscular Hemoglobin 27.0 pg (27.0-33.0); Mean Corpuscular Volume 81.3 fL (80.0-98.0); NRBC Abs Auto 0.000 X10*3/uL (0.0-0.012); NRBC Pct Auto 0.0 /100WBC (0.0-0.2); Platelet Count 234 X10*3/uL (160-400); Red Blood Count 4.86 X10*6/uL (4.60-5.80); White Blood Count 8.3 X10*3/uL (4.8-10.8)
[2025-04-03 13:37] LABS: Alanine Aminotransferase 33 U/L (0-40); Albumin Level 4.1 g/dL (3.5-5.0); Alkaline Phosphatase 145 U/L (39-117); Anion Gap 11 (12-20); Aspartate Amino Transferase 24 U/L (5-37); Blood Urea Nitrogen 12 mg/dL (9-16); Calcium 8.7 mg/dL (8.4-10.2); Carbon Dioxide 24 mmol/L (22-29); Chloride 114 mmol/L (96-108); Cholesterol 146 mg/dL (<200); Estimated Glomerular Filt Rate > 60; HDL Cholesterol 34 mg/dL (>40); Potassium 3.9 mmol/L (3.3-5.1); Sodium 145 mmol/L (135-145); Total Protein 7.4 g/dL (6.5-8.0); Triglycerides 118 mg/dL (<150)
[2025-04-03 13:42] LABS: Prostate Specific Antigen 0.82 ng/mL (<0.05-4.0)
== END 2025-04-03 12:07 | disposition home or self-care (01) ==
LOC: HO.10HDL 12:06
PROVIDERS: Visit Provider Physician Assistant
DX: I10 Essential (primary) hypertension (principal); E78.5 Hyperlipidemia, unspecified; E11.69 Type 2 diabetes mellitus with other specified complication; N52.1 Erectile dysfunction due to diseases classified elsewhere; A60.00 Herpesviral infection of urogenital system, unspecified; Z12.5 Encounter for screening for malignant neoplasm of prostate
CPT/HCPCS: 36415; 80048; 80061; 80076; 82043; 82570; 83036; 84153; 85025